=== PATIENT | male | born 1995 | race African-American/Black ===

== ENCOUNTER → 2022-10-13 | Emergency (ER) | payer MEDICAID ==
[~2022-10-13] VITALS: Ht 188 cm; Wt 85.3 kg
[2022-10-13 04:15] VITALS: BP 122/70
[2022-10-13 04:43] LABS: BASOPHILS % (AUTO) 0.4 % (0.0-2.0); EOSINOPHILS % (AUTO) 0.8 % (0.0-6.0); HEMATOCRIT 47 % (39-51); HEMOGLOBIN 15.5 g/dL (13.5-17.5); LYMPHOCYTES # (AUTO) 1.5 K/uL (0.8-4.8); MEAN CORPUSCULAR HGB CONC 33 g/dl (31.0-36.0); MEAN CORPUSCULAR VOLUME 95 fL (80-96); MONOCYTES # (AUTO) 0.4 K/uL (0.1-1.30); MONOCYTES % (AUTO) 6.7 % (2.0-12.0); NEUTROPHILS # (AUTO) 4.5 K/uL (1.8-8.9); NEUTROPHILS % (AUTO) 69.1 % (43.0-81.0); PLATELET COUNT (AUTO) 245 K/uL (150-450); RED BLOOD CELL COUNT(AUTO) 4.91 MIL/uL (4.5-6.0); WHITE BLOOD COUNT (AUTO) 6.5 K/uL (4.3-11.0)
[2022-10-13 04:50] LABS: BILIRUBIN,URINE 1+ (NEGATIVE); COLOR,URINE YELLOW (YELLOW); LEUKOCYTE ESTERASE ,URINE NEGATIVE (NEGATIVE); NITRITE, URINE NEGATIVE (NEGATIVE); PROTEIN,URINE NEGATIVE (NEGATIVE); UGLUCOSE NEGATIVE (NEGATIVE)
[2022-10-13 04:59] LABS: ALANINE AMINOTRANSFERASE 8 U/L (12-78); ALBUMIN 4.9 g/dL (3.4-5.0); ALKALINE PHOSPHATASE 76 U/L (46-116); ASPARTATE AMINOTRANSFERASE 17 U/L (15-37); BILIRUBIN,DIRECT 0.2 mg/dL (0.0-0.2); CALCIUM, SERUM 10.1 mg/dL (8.5-10.1); CARBON DIOXIDE 30 mmol/L (21-32); CHLORIDE 101 mmol/L (98-107); CREATININE 1.2 mg/dL (0.6-1.3); GLUCOSE 109 mg/dL (74-106); POTASSIUM 3.8 mmol/L (3.5-5.1); SODIUM SERUM 137 mmol/L (136-145); TOTAL PROTEIN, SERUM 8.9 g/dL (6.4-8.2); UREA NITROGEN, BLOOD 11 mg/dL (7-18)
[2022-10-13 05:00] LABS: BACTERIA,URINE Rare /HPF (None Seen); RBC,URINE 0-2 /HPF (0-2); WBC,URINE 0-2 /HPF (0-3)
[2022-10-13 05:01] LABS: SQUAMOUS EPITHELIAL CELL,UR Few /HPF (None Seen)
--- NOTE | 2022-10-13 05:01 | NUR ---
BIBS. TO ER BED 18. AOX4. NOT IN RESP DISTRESS. AMBUALTORY. CAME IN FOR MEDICAL CLEARANCE FOR VOLUNTARY ADMISSION. HE HAS BEEN DEPRESSED AND PARANOID. DENIES SI NOR HI. PT PLACED IN GOWN, BELONGINGS TAKEN AWAY AND SITTER WITH IN SIGHT. MD WAS AT THE BEDSIDE. ORDERS RECEIVED, NOTED AD CARRIED OUT
[2022-10-13 05:03] LABS: ACETAMINOPHEN 0 ug/ml (10-30); ALCOHOL, BLOOD < 3 mg/dL (0-0)
--- NOTE | 2022-10-13 08:02 | NUR ---
CLINICALS FAXED TO [facility] INTAKE.
--- NOTE | 2022-10-13 08:43 | NUR ---
PT ACCEPTED TO [facility] UNDER DR. TORO PLEASE CALL [phone] FOR REPORT SEND AFTER [phone]
--- NOTE | 2022-10-13 09:05 | NUR ---
CALLED [facility] FOR TRANSPORT ASKED FOR ETA OF [phone]
== END ==
LOC: ER 02:58
DX: F32.A Depression, unspecified (principal); F12.90 Cannabis use, unspecified, uncomplicated; Z20.822 Contact with and (suspected) exposure to COVID-19
CPT/HCPCS: 99285; 85025; 80048; 80076; 81001; 36415; 87426; 80143; 80320; 80307; C9803; G0480